=== PATIENT | female | born 1985 | race Caucasian/White ===

== ENCOUNTER → 2017-11-02 | Outpatient (CLI) | payer OTHER ==
[~2017-11-02] MED LIST: ANAPROX DS550 MG PO; ANUSOL-HC2.5% RC; CLEOCIN150 MG PO; DIFLUCAN150 MG PO; IBU800 MG PO; MOBIC15 MG PO; NITROFURANTOIN100 MG PO; NKHM PO; PERCOCET 325 MG1 TA2 PO; PRENATAL1 TA1 PO; SYNTHROID0.05 MG PO; VIBRA-TAB100 MG PO; VICODIN 500 MG-1 TAB PO
--- NOTE | ~2017-11-02 | EKG ---
[place], [place] ELECTROCARDIOGRAM REPORT NAME: RAND SHARMA UNIT #: [id number] ROOM: DOCTOR: EPIPHANY DRAFT REPORT BIRTHDATE: [birth year] [facility] Test Date: 2017-11-02 Test Time: 15:36:17 Pat Name: RAND SHARMA Department: Room: Gender: F Collections Specialist: VAIBHAV : 1985 Requested By: CLAUDIA NICHOLSON Order Number: [id number] Reading MD: Floyd Cunha MD Measurements Intervals [place] Rate: 87 P: 23 KS: 147 QRS: 14 QRSD: 84 T: 11 QT: 373 QTc: 449 Interpretive Statements Sinus rhythm Electronically Signed On 11-03-2017 7:00:45 PDT by Floyd Cunha MD CM:EKGRPT:ELECTROCARDIOGRAM REPORT [id number] CLAUDIA NICHOLSON EPIPHANY DRAFT REPORT CLAUDIA NICHOLSON
== END | disposition home or self-care (01) ==
LOC: RAD 15:05 → LAB 15:05
DX: R06.02 Shortness of breath (principal)

== ENCOUNTER → 2017-11-04 | Outpatient (CLI) | payer OTHER ==
[2017-11-04 11:49] LABS: VITAMIN D, 25-HYDROXY 17.5 ng/mL (30-100)
== END | disposition home or self-care (01) ==
LOC: LAB 10:22
PROVIDERS: Nurse Practitioner Family
DX: R07.89 Other chest pain (principal); R89.9 Unspecified abnormal finding in specimens from other organs, systems and tissues

== ENCOUNTER → 2021-12-08 | Outpatient (CLI) | payer OTHER | END | disposition home or self-care (01) | LOC: RAD 15:47 | PROVIDERS: ATTEND Nurse Practitioner Family | DX: R05.9 Cough, unspecified (principal); R06.02 Shortness of breath; R06.2 Wheezing ==

== ENCOUNTER → 2023-09-12 | Outpatient (CLI) | payer OTHER | END | disposition home or self-care (01) | LOC: WOUNDCARE 10:19 | PROVIDERS: ATTEND Nurse Practitioner Family | DX: T24.312A Burn of third degree of left thigh, initial encounter (principal); T20.20XA Burn of second degree of head, face, and neck, unspecified site, initial encounter; T31.0 Burns involving less than 10% of body surface; T81.30XA Disruption of wound, unspecified, initial encounter; K58.9 Irritable bowel syndrome, unspecified; F31.9 Bipolar disorder, unspecified; Z90.710 Acquired absence of both cervix and uterus; Z79.899 Other long term (current) drug therapy; X03.0XXA Exposure to flames in controlled fire, not in building or structure, initial encounter; Y93.89 Activity, other specified; Y83.8 Other surgical procedures as the cause of abnormal reaction of the patient, or of later complication, without mention of misadventure at the time of the procedure; Y92.89 Other specified places as the place of occurrence of the external cause; Y99.8 Other external cause status ==

== ENCOUNTER → 2023-09-19 | Outpatient (CLI) | payer OTHER | END | disposition home or self-care (01) | LOC: WOUNDCARE 01:22 | PROVIDERS: ATTEND Nurse Practitioner Family | DX: T24.312D Burn of third degree of left thigh, subsequent encounter (principal); T31.0 Burns involving less than 10% of body surface; T81.30XD Disruption of wound, unspecified, subsequent encounter; K58.9 Irritable bowel syndrome, unspecified; F31.9 Bipolar disorder, unspecified; Z90.710 Acquired absence of both cervix and uterus; Z79.899 Other long term (current) drug therapy; X03.0XXD Exposure to flames in controlled fire, not in building or structure, subsequent encounter; Y83.8 Other surgical procedures as the cause of abnormal reaction of the patient, or of later complication, without mention of misadventure at the time of the procedure ==